=== PATIENT | female | born 1995 | race African-American/Black ===

== ENCOUNTER 2016-11-07 03:53 | Emergency (ER) | payer MEDICAID ==
[~2016-11-07] VITALS: Ht 154.9 cm; Wt 45.0 kg
[2016-11-07 04:14] VITALS: BP 108/78
== END 2016-11-07 06:00 | disposition left against medical advice (07) ==
LOC: ER 03:53
DX: O20.9 Hemorrhage in early pregnancy, unspecified (principal); Z3A.00 Weeks of gestation of pregnancy not specified; Z53.21 Procedure and treatment not carried out due to patient leaving prior to being seen by health care provider